=== PATIENT | male | born 1955 | race Two or more races ===

== ENCOUNTER 2021-10-12 03:40 | Inpatient (IN) | payer MEDICARE, OTHER ==
[~2021-10-12] VITALS: Ht 180.3 cm; Wt 86.2 kg
--- NOTE | 2021-10-12 04:05 | NUR ---
BIBRA 60 FROM HOME FOR R SHOULDER PAIN S/P TRIP AND FALL. PT NO ABLE TO MOVE R SHOUDLDER. ABRASION ; SKIN TEAR NOTED TO BILATERAL KNEES. PT A/OX3; NEURO CHECK DONE WNL. TOLERATING R/A WELL WITH NO RESP DISTRESS. CONNECTED PT TO POX AND MONITOR. SAFETY MESURES AT PLACE.
--- NOTE | 2021-10-12 04:07 | NUR ---
L NEPHROSTOMY TUBE NOTED LANDSCAPE CREW LEADER. LFA #20G S/L ESTABLISHED LANDSCAPE CREW LEADER
--- NOTE | 2021-10-12 05:21 | NUR ---
EMT AT PT'S BEDSIDE; APPLIED SLING TO R SHOULDER. EKG DONE
[2021-10-12] MEDS ORDERED: MORPHINE SULFATE INJ 4 MG/ML DISP.SYRIN ONE (05:23)
[2021-10-12] MEDS ORDERED: ONDANSETRON HCL/PF 4 MG/2 ML VIAL ONE (05:23)
--- NOTE | 2021-10-12 05:23 | NUR ---
PAGED DR SOLARES FOR ORTHO CONSULT
[2021-10-12] MEDS ORDERED: MORPHINE SULFATE INJ 2 MG/ML DISP.SYRIN IV ONE (05:30)
[2021-10-12] MEDS ORDERED: ONDANSETRON HCL/PF 4 MG/2 ML VIAL IV ONE (05:30)
--- NOTE | 2021-10-12 05:35 | NUR ---
DRYING FRAME OPERATOR AT PT'S BEDSIDE.
--- NOTE | 2021-10-12 05:43 | NUR ---
COVID ANTIGEN SWAB COLLECTED AND SENT TO LAB
[2021-10-12 05:50] LABS: BASOPHILS % (AUTO) 0.1 % (0.0-2.0); EOSINOPHILS % (AUTO) 0.1 % (0.0-6.0); HEMATOCRIT 37 % (39-51); HEMOGLOBIN 11.4 g/dL (13.5-17.5); LYMPHOCYTES # (AUTO) 0.3 K/uL (0.8-4.8); LYMPHOCYTES % (AUTO) 1.8 % (20.0-44.0); MEAN CORPUSCULAR HGB CONC 31 g/dl (31.0-36.0); MEAN CORPUSCULAR VOLUME 61 fL (80-96); MONOCYTES # (AUTO) 0.6 K/uL (0.1-1.30); MONOCYTES % (AUTO) 4.2 % (2.0-12.0); NEUTROPHILS # (AUTO) 13.3 K/uL (1.8-8.9); NEUTROPHILS % (AUTO) 93.8 % (43.0-81.0); PLATELET COUNT (AUTO) 203 K/uL (150-450); RED BLOOD CELL COUNT(AUTO) 6.05 MIL/uL (4.5-6.0); WHITE BLOOD COUNT (AUTO) 14.2 K/uL (4.3-11.0)
[2021-10-12] MEDS ORDERED: ACETAMINOPHEN 325 MG TABLET PO PRN (06:00)
[2021-10-12] MEDS ORDERED: ONDANSETRON HCL/PF 4 MG/2 ML VIAL IVP PRN (06:00)
[2021-10-12 06:07] LABS: CALCIUM, SERUM 9.1 mg/dL (8.5-10.1); CREATININE 2.7 mg/dL (0.6-1.3); POTASSIUM 3.1 mmol/L (3.5-5.1)
[2021-10-12] MEDS ORDERED: IV NS 0.9% 1,000 ML BAG IV ONE (06:30)
--- NOTE | 2021-10-12 06:43 | NUR ---
PER DR CRUZ DC 2L NS ADMIT 1L NS BOLUS
--- NOTE | 2021-10-12 07:15 | NUR ---
RECEVED PT FROM YOLANDE RN PT ASLEEPY NO SOB OR DISTRESS
--- NOTE | 2021-10-12 07:20 | NUR ---
PT MAINTAINED ON NPO DIET
[2021-10-12] MEDS ORDERED: NIFE30TA91 PO (07:50)
[2021-10-12] MEDS ORDERED: TEMA30CA PO (07:50)
[2021-10-12] MEDS ORDERED: METO25TA4 PO (07:50)
[2021-10-12] MEDS ORDERED: ATOR40TA PO (07:50)
--- NOTE | 2021-10-12 09:00 | NUR ---
urine output from ilistomy 600ml cleare color
--- NOTE | 2021-10-12 09:15 | NUR ---
luz ct scan of lt shoulder
[2021-10-12] MEDS ORDERED: DOCUSATE SODIUM LIQ 100 MG/10 ML UDC ONE (09:29)
[2021-10-12] MEDS ORDERED: hydrALAZINE HCL IV 20 MG VIAL ONE (09:30)
[2021-10-12] MEDS: DOCUSATE SODIUM LIQ 100 MG/10 ML UDC PO SCH ×2 (09:46→17:20)
[2021-10-12] MEDS: hydrALAZINE HCL IV 20 MG VIAL IV PRN ×3 (09:47→17:20)
--- NOTE | 2021-10-12 09:49 | NUR ---
iliostomy urine out put 200 ml clear color
--- NOTE | 2021-10-12 10:54 | NUR ---
ROOM UPDATE 315-8
--- NOTE | 2021-10-12 10:57 | NUR ---
REPORT GIVEN TO NURSE PETERSON FOR ARUN
--- NOTE | 2021-10-12 11:12 | NUR ---
ORTHOPIC EURGEN SAT BED SIDE SPOOK WITH PT ABOUT PLAN OF CARE AWARE BP 191/[address] [facility] [address] GONGORA ED PLAN TO SEND PT TO ROOM
--- NOTE | 2021-10-12 11:25 | NUR ---
Note aurelianojuan in ED - 10/12/21 at 1126 by PORSCHE THE PATIENT NPO AFTER MIDNIGHT PER DR PATRICIA. THE ORDER IS READ BACK, VERIFIED. NOTED AND CARRIED OUT. NURSES MARY KAY AND LYNN MADE AWARE.
--- NOTE | 2021-10-12 11:26 | NUR ---
THE PATIENT NPO AFTER MIDNIGHT PER DR PATRICIA. THE ORDER IS READ BACK, VERIFIED. NOTED AND CARRIED OUT. NURSES MARY KAY AND KRISTEN MADE AWARE.
--- NOTE | 2021-10-12 11:36 | NUR ---
THE PATIENT IS TRANSFERED TO ROOM 315-1 IN STABLE CONDITON AND PER POLICY.
--- NOTE | 2021-10-12 12:00 | NUR ---
RN receiving Note PT AOx4, state he has pain 10/10, able to address his own concerns. Pt with nephrostomy tube. High blood pressure. Partner at bedside. PT able to provide health history. Educated pt on importance of asking for assistance to reposition or use bathroom. Emptied pts nephrostomy bag 500ml. Clear/Yellow. All safety precautions take, bed at lowest position, call light and table within reach. Will follow up on physicians medication orders.
[2021-10-12 12:02] VITALS: BP 188/101
[2021-10-12] MEDS: MORPHINE SULFATE INJ 2 MG/ML DISP.SYRIN IV PRN ×3 (12:24→21:38)
[2021-10-12] MEDS: IV NS 0.9% 1,000 ML IV PRN (12:38)
[2021-10-12] MEDS ORDERED: TEMAZEPAM 15 MG CAPSULE PO PRN (13:00)
[2021-10-12 13:11] VITALS: BP 172/98
[2021-10-12 13:18] LABS: THYROID STIMULATING HORMONE 2.758 uIU/mL (0.358-3.74)
[2021-10-12] MEDS: POTASSIUM CHLORIDE 20 MEQ TAB.PRT.SR PO SCH ×2 (13:21→15:20)
[2021-10-12 15:48] VITALS: BP 196/94
[2021-10-12 16:00] VITALS: BP 198/98
[2021-10-12] MEDS: NIFEdipine XL (30MG) 30 MG TAB PO SCH (17:20)
--- NOTE | 2021-10-12 18:29 | NUR ---
RN Closing Notes PT AOx4, vital signs are stable other than Blood pressure (high). PT able to express needs. Through out out shift bp has been monitored and HTN meds administered as ordered by provider. Pain meds have been administered and pts pain has been from 10-5 throughout shift. Patient aware of scheduled procedure tomorrow am, need for medical and cardio clearance documented. Pt aware of his situation and expresses wanting to go forward with surgery. Consent has been signed and questions answered. All safety precautions taken, bed at lowest position, call light and table within reach.
--- NOTE | 2021-10-12 19:30 | NUR ---
NETWORK CABLER OPENING NOTE RECEIVED PATIENT IN BED A/OX4. NO S/S OF APPARENT DISTRESS IN ROOM AIR. C/O 06/19 PAIN-- WAS JUST GIVEN PAIN MEDICATION. RT. SHOULDER SLING NOTED IN PLACE. NEPHROSTOMY BAG NOTED IN PLACE-- EMPTIED 400 ML. 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 L. ARM #20G RUNNING NS @75MLS/HR. RE-ORIENTED AND ENCOURAGED WITH THE USE OF CALL LIGHT. SAFETY IN PLACE. WILL CONTINUE WITH PLAN OF CARE FOR PATIENT.
[2021-10-12] MEDS: hydrALAZINE HCL 50 MG TABLET PO SCH (19:44)
[2021-10-12 20:00] VITALS: BP 195/111
[2021-10-12] MEDS: NITROGLYCERIN 30 GM TUBE TP SCH (21:37)
[2021-10-12] MEDS: HEPARIN SODIUM, PORCINE 5000 UNITS/1 ML VIAL SQ SCH (21:44)
[2021-10-13] VITALS: BP 147/99
[2021-10-13] MEDS: MORPHINE SULFATE INJ 2 MG/ML DISP.SYRIN IV PRN ×4 (01:01→11:01)
--- NOTE | 2021-10-13 01:02 | NUR ---
THRILL PERFORMER NOTE PATIENT IN SEVERE PAIN. MORPHINE PRN GIVEN 30 MINUTES EARLY, PER CHARGE NURSE STEPHY OKAY TO GIVE, HR GOES UP TO 180'S.
--- NOTE | 2021-10-13 04:30 | NUR ---
RADIO STATION AUDIO ENGINEER NOTE PATIENT BEEN C/O SEVERE PAIN Q3. PUFF IRONER DOCTOR, DR. ODONNELL SAID IT IS OKAY TO CHANGE FREQUENCY Q3 TO Q4 OF PATIENT'S MORPHINE. ORDER CARRIED OUT.
[2021-10-13 05:00] VITALS: BP 134/85
[2021-10-13 05:59] LABS: BILIRUBIN,URINE NEGATIVE (NEGATIVE); COLOR,URINE YELLOW (YELLOW); LEUKOCYTE ESTERASE ,URINE NEGATIVE (NEGATIVE); NITRITE, URINE NEGATIVE (NEGATIVE); PROTEIN,URINE >=300 mg/dl (NEGATIVE); UGLUCOSE 100 MG/DL mg/dL (NEGATIVE)
[2021-10-13 06:05] LABS: BASOPHILS # (AUTO) 0.1 K/uL (0.0-0.2); BASOPHILS % (AUTO) 0.3 % (0.0-2.0); HEMATOCRIT 38 % (39-51); HEMOGLOBIN 11.9 g/dL (13.5-17.5); LYMPHOCYTES # (AUTO) 0.2 K/uL (0.8-4.8); LYMPHOCYTES % (AUTO) 1.2 % (20.0-44.0); MEAN CORPUSCULAR HGB CONC 31 g/dl (31.0-36.0); MEAN CORPUSCULAR VOLUME 61 fL (80-96); MONOCYTES % (AUTO) 5.6 % (2.0-12.0); NEUTROPHILS # (AUTO) 16.9 K/uL (1.8-8.9); NEUTROPHILS % (AUTO) 92.9 % (43.0-81.0); PLATELET COUNT (AUTO) 221 K/uL (150-450); RED BLOOD CELL COUNT(AUTO) 6.26 MIL/uL (4.5-6.0); WHITE BLOOD COUNT (AUTO) 18.2 K/uL (4.3-11.0)
[2021-10-13 06:18] LABS: BACTERIA,URINE Rare /HPF (None Seen); SQUAMOUS EPITHELIAL CELL,UR Few /HPF (None Seen); WBC,URINE 0-2 /HPF (0-3)
--- NOTE | 2021-10-13 06:23 | NUR ---
PLANT ACCOUNTANT CLOSING NOTE PATIENT IN BED , A/OX4. NO S/S OF APPARENT DISTRESS IN ROOM AIR. PAIN MANAGED WITH MEDICATION AND ICE PACKS. TELE MONITOR READING 1ST DEGREE AV BLOCK WITH BBB AND OCCASIONAL PVC'S AND TRIGEMINI THIS AM WITH 96 BPM. ALL NEEDS ATTENDED, ALL SCHEDULED MEDICATIONS ADMINISTERED. NPO SINCE MIDNIGHT, IN FOR SX TODAY, WILL ENDORSE TO MORNING SHIFT RN FOR CONTINUITY OF CARE.
[2021-10-13 06:26] LABS: ALBUMIN 3.6 g/dL (3.4-5.0); CALCIUM, SERUM 8.9 mg/dL (8.5-10.1); CREATININE 2.9 mg/dL (0.6-1.3); PHOSPHORUS 3.2 mg/dL (2.5-4.9); POTASSIUM 3.5 mmol/L (3.5-5.1); TOTAL PROTEIN, SERUM 7.2 g/dL (6.4-8.2)
--- NOTE | 2021-10-13 07:30 | NUR ---
ZIPPER SLIDE ATTACHER OPENING NOTE RECEIVED PATIENT IN BED A/OX4, NO S/S OF ACUTE DISTRESS OR SOB, ON RA ROOM AIR, TOLERATING PT C/O 10/19, WILL ADMINISTER PRN PAIN MED AND REASSESS. PT HAS R SHOULDER SLING NOTED. NEPHROSTOMY BAG NOTED IN PLACE, DRAINING CLEAR YELLOW URINE, DRAINED 200 ML. TELE MONITOR READING SR WITH 1ST DEGREE AV BLOCK WITH BBB AND OCCASIONAL PVC'S WITH 100 BPM. IV ACCESS L ARM #20G SL, PATENT. SAFETY MEASURES IN PLACE, HOB ELEVATED, LOCKED IN LOWEST POSITION, SIDERAILS UP X2, CALL LIGHT AND TABLE WITHIN REACH, WILL CONTINUE TO MONITOR.
[2021-10-13 08:00] VITALS: BP 186/93
[2021-10-13] MEDS: NIFEdipine XL (30MG) 30 MG TAB PO SCH ×2 (08:42→17:00)
[2021-10-13] MEDS: METOPROLOL SUCCINATE 25 MG TAB.SR.24H PO SCH (08:43)
[2021-10-13] MEDS: hydrALAZINE HCL 50 MG TABLET PO SCH ×3 (08:43→17:00)
[2021-10-13] MEDS: POLYETHYLENE GLYCOL 3350 17 GM POWD.PACK PO SCH ×2 (08:45→09:00)
[2021-10-13] MEDS: DOCUSATE SODIUM LIQ 100 MG/10 ML UDC PO SCH (08:45)
[2021-10-13] MEDS: HEPARIN SODIUM, PORCINE 5000 UNITS/1 ML VIAL SQ SCH ×2 (09:00→21:05)
[2021-10-13] MEDS ORDERED: ATORVASTATIN 40 MG TABLET PO SCH (09:00)
[2021-10-13] MEDS: NITROGLYCERIN 30 GM TUBE TP SCH ×2 (09:00→21:04)
[2021-10-13] MEDS ORDERED: ANESTHESIA TRAY IN PYXIS 1 EA TRAY MC ONE (11:43)
[2021-10-13 12:00] VITALS: BP 126/70
[2021-10-13] MEDS ORDERED: HYDROMORPHONE INJ 2 MG/ML DISP.SYRIN ONE (12:06)
[2021-10-13] MEDS ORDERED: ROCURONIUM BROMIDE 50 MG/5 ML ONE (12:06)
[2021-10-13] MEDS ORDERED: FENTANYL PF 100MCG/2ML AMPUL ONE (12:06)
--- NOTE | 2021-10-13 12:30 | NUR ---
MIDWIFE AND BIRTH CENTER OWNER NOTES: PT TRANSPORTED VIA BED TO SURGERY BY OR STAFF. PT VITALS PRE OP-BP: 126/70, HR: 106, TEMP: 97.2, O2 SAT 97% ON RA, RR: 18. CONSENT FORMS AND CHECKLIST SIGNED AND ATTACHED TO CHART.
[2021-10-13] MEDS ORDERED: diphenhydrAMINE HCL 25 MG CAPSULE PO PRN (14:00)
[2021-10-13] MEDS ORDERED: ONDANSETRON HCL/PF 4 MG/2 ML VIAL IV PRN (14:00)
[2021-10-13] MEDS ORDERED: MENTHOL/CETYLPYRD (CEPACOL) 1 LOZ LOZENGE PO PRN (14:00)
[2021-10-13] MEDS ORDERED: CLONIDINE HCL 0.1 MG TABLET PO PRN (14:00)
[2021-10-13] MEDS ORDERED: MAG HYDROX/AL HYDROX/SIMETH 30 ML UDC PO PRN (14:00)
[2021-10-13] MEDS ORDERED: MAGNESIUM HYDROXIDE 30 ML UDC PO PRN (14:00)
[2021-10-13] MEDS ORDERED: VANCOMYCIN 1 GM VIAL ONE (15:33)
[2021-10-13] MEDS ORDERED: BUPIVACAINE 0.5 % PF 150 MG/30 ML VIAL ONE (15:33)
[2021-10-13] MEDS ORDERED: BUPIVACAINE 0.25% 75 MG/30 ML VIAL ONE (15:33)
--- NOTE | 2021-10-13 17:00 | NUR ---
JAVA SECURITY ARCHITECT NOTES: 1700 MED NOT GIVEN, PT IS STILL NOT BACK FROM SURGERY.
[2021-10-13] MEDS ORDERED: SENNOSIDES 8.6 MG TABLET PO PRN (18:00)
[2021-10-13] MEDS ORDERED: ZOLPIDEM TARTRATE 5 MG TABLET PO PRN (18:00)
[2021-10-13] MEDS ORDERED: DOCUSATE SODIUM 250 MG CAPSULE PO PRN (18:00)
[2021-10-13] MEDS ORDERED: BISACODYL SUPP (10 MG) 10 MG/SUPP.RECT SUPP.RECT RC PRN (18:00)
[2021-10-13] MEDS ORDERED: HYDROCODONE/APAP 5/325MG TABLET PO PRN ×2 (18:00)
[2021-10-13] MEDS ORDERED: MORPHINE SULFATE INJ 4 MG/ML DISP.SYRIN IV PRN (18:00)
[2021-10-13] MEDS ORDERED: ACETAMINOPHEN 325 MG TABLET PO PRN (18:00)
--- NOTE | 2021-10-13 18:00 | NUR ---
CHERRY CUTTER NOTES: PT CAME BACK FROM SURGERY. VS STABLE: BP- 123/91, HR- 98, TEMP - 98.0, O2 SAT- 98%. CONNECTED TO TELE MONITOR READING SR 98. IV ACCESS AT R HAND #20, INFUSING 75ML/HR. PT IS IN 2L OF O2. NO S/S OF ACUTE DISTRESS OR SOB AT THE MOMENT. PT REPORTS PAIN 4/10 AT THE MOMENT, WILL CONTINUE TO MONITOR FOR PAIN. IS AT BEDSIDE. PER MD ORDER, PT CAN RESUME TO REG DIET, DINNER ORDERED FOR PT.
[2021-10-13] MEDS: DRONABINOL (2.5 MG) 2.5 MG CAPSULE PO SCH (18:35)
[2021-10-13] MEDS: HYDROCODONE/APAP 10/325MG TABLET PO PRN (18:35)
[2021-10-13] MEDS: SOD FERRIC GLUC 125 MG in IV NS 0.9% 100 ML IV SCH (19:01)
--- NOTE | 2021-10-13 19:30 | NUR ---
RN OPENING NOTE PATIENT IN BED, AT BEDSIDE. PATIENT IS A/O X 4, ABLE TO MAKE NEEDS KNOW. PATIENT IS ON 2LPM TOLERATING WELL. PATIENT IS S/P R SHOULDER SX, SHOULDER SLING ON. SX DRESSING C/D/I. PATIENT IS ON TELE MONITOR READING 96 BPM WITH 1ST DEGREE AV BLOCK, BBB, AND PVC. NEPHROSTOMY TUBE DRAINING CLEAR YELLOW URINE. PATIENT DOES NOT REPORT ANY PAIN AT THIS TIME. SAFETY MEASURES IN PLACE: BED LOCKED AND IN LOWEST POSITION, CALL LIGHT WITHIN REACH, SIDE RAILS UP. WILL MONITOR PATIENT CLOSELY.
--- NOTE | 2021-10-13 19:45 | NUR ---
L HAND IV ACCESS, LEAKING. IV ACCESS REMOVED.
--- NOTE | 2021-10-13 19:49 | NUR ---
OCEAN EXPORT COORDINATOR CLOSING NOTE PT S/P R SHOULDER ARTHROPLASTY. PT IN BED ASLEEP BUT EASILY ROUSED, A/OX4. NO S/S OF ACUTE DISTRESS OR SOB ON 2L OF O2. PT HAS R SHOULDER SLING NOTED. NEPHROSTOMY BAG NOTED IN PLACE, DRAINING CLEAR YELLOW URINE, DRAINED 900 ML BY END OF SHIFT. TELE MONITOR READING SR WITH 1ST DEGREE AV BLOCK WITH BBB AND OCCASIONAL PVC'S WITH 100 BPM. IV ACCESS R HAND #20G RUNNING NS @ 75ML/HR. SAFETY MEASURES IN PLACE, HOB ELEVATED, LOCKED IN LOWEST POSITION, SIDERAILS UP X2, CALL LIGHT AND TABLE WITHIN REACH, WILL CONTINUE TO MONITOR. Addendum: 10/13/21 at 1959 by ABEBA WASHINGTON RN ENDORSED TO PM SHIFT.
[2021-10-13 20:00] VITALS: BP 144/93
--- NOTE | 2021-10-13 20:30 | NUR ---
MULTIPLE PIV ATTEMPTS FAILED. OBTAINED ORDER TO HAVE MIDLINE INSERTED
[2021-10-13] MEDS: FAMOTIDINE (20 MG) 20 MG TABLET PO SCH (21:04)
[2021-10-13] MEDS: ANCEF 1 GM/50 ML D5W IV SCH ×2 (22:37)
[2021-10-13] MEDS: HYDROMORPHONE 1 MG/1 ML DISP.SYRIN IM/IV/SC PRN (22:37)
--- NOTE | 2021-10-13 22:40 | NUR ---
RN NOTE DILAUDID GIVEN FOR PAIN 8/10 ON R SHOULDER. WILL REASSESS AT A LATER TIME
[2021-10-14] VITALS: BP 130/50
[2021-10-14] MEDS: HYDROMORPHONE 1 MG/1 ML DISP.SYRIN IM/IV/SC PRN ×3 (03:54→17:31)
--- NOTE | 2021-10-14 03:54 | NUR ---
RN NOTE DILAUDID 0.5 MG IV FOR R SHOULDER PAIN.
[2021-10-14 05:00] VITALS: BP 130/93
[2021-10-14] MEDS: ANCEF 1 GM/50 ML D5W IV SCH ×2 (05:27)
[2021-10-14] MEDS: IV NS 0.9% 1,000 ML IV PRN (05:27)
[2021-10-14] MEDS: DRONABINOL (2.5 MG) 2.5 MG CAPSULE PO SCH ×2 (05:27→17:33)
[2021-10-14 06:29] LABS: HEMATOCRIT 34 % (39-51); HEMOGLOBIN 10.5 g/dL (13.5-17.5); LYMPHOCYTES # (AUTO) 0.5 K/uL (0.8-4.8); LYMPHOCYTES % (AUTO) 2.3 % (20.0-44.0); MEAN CORPUSCULAR HGB CONC 31 g/dl (31.0-36.0); MEAN CORPUSCULAR VOLUME 61 fL (80-96); MONOCYTES # (AUTO) 1.5 K/uL (0.1-1.30); MONOCYTES % (AUTO) 7.1 % (2.0-12.0); NEUTROPHILS # (AUTO) 18.8 K/uL (1.8-8.9); NEUTROPHILS % (AUTO) 90.6 % (43.0-81.0); PLATELET COUNT (AUTO) 229 K/uL (150-450); RED BLOOD CELL COUNT(AUTO) 5.54 MIL/uL (4.5-6.0); WHITE BLOOD COUNT (AUTO) 20.8 K/uL (4.3-11.0)
--- NOTE | 2021-10-14 06:58 | NUR ---
RN CLOSING NOTE PATIENT IN BED, EYES CLOSED. EASILY AWAKENED. MANAGED PAIN WITH DILAUDID 0.5 MG, REVIEWED PAIN MANAGEMENT WITH DR. SAMUEL. PATIENT'S NEPHROSTOMY TUBE PATENT AND INTACT, DRAINING YELLOW CLEAR URINE. R ARM SLING STILL ON, R SHOULDER DRESSING C/D/I. BASSEM MIDLINE PATENT AND INTACT RUNNING NS AT 75 ML/HR. NO SIGNIFICANT CHANGES DURING THE SHIFT. SAFETY MEASURES IMPLEMENTED. ALL NEEDS MET AND ATTENDED. ALL ORDERS CARRIED OUT. WILL ENDORSE TO DAY SHIFT NURSE FOR ARUN. Addendum: 10/14/21 at 0702 by ELIJAH ROJAS RN TELE MONITOR READS 92 SR WITH 1ST DEGREE AV BLOCK, BBB, AND PVC.
[2021-10-14 07:27] LABS: ALBUMIN 2.9 g/dL (3.4-5.0); BILIRUBIN,TOTAL 0.4 mg/dL (0.2-1.0); CALCIUM, SERUM 8.2 mg/dL (8.5-10.1); CREATININE 3.3 mg/dL (0.6-1.3); MAGNESIUM 2.2 mg/dL (1.8-2.4); PHOSPHORUS 4.1 mg/dL (2.5-4.9); POTASSIUM 3.9 mmol/L (3.5-5.1); TOTAL PROTEIN, SERUM 6.3 g/dL (6.4-8.2)
--- NOTE | 2021-10-14 07:30 | NUR ---
ADVANCED NURSING PROFESSOR OPENING NOTES RECEIVED PATIENT ON BED AWAKE AND A/O X4. ON ROOM AIR TOLERATING WELL. NO SOB NOTED. NOT IN DISTRESS. WITH NO COMPLAINTS OF PAIN OR DISCOMFORT AT THIS TIME. WITH IV ACCESS AT THE LEFT UPPER ARM MIDLINE WITH NS AT 75ML/HR INFUSING WELL. WITH SHOULDER SLING ON. SURGERY DRESSING C/D/I. ON TELE MONITOR CURRENTLY READING 94BPM WITH 1ST DEGREE AV BLOCK, BBB AND PVCs. WITH NEPHROSTOMY TUBE DRAINING CLEAR YELLOW URINE. SAFETY MEASURES IN PLACED. CALL LIGHT WITHIN REACH. BED ON LOWEST LOCKED POSITION, SIDE RAILS UP X2. WILL CONTINUE TO MONITOR.
[2021-10-14 08:38] VITALS: BP 127/92
[2021-10-14] MEDS: FAMOTIDINE (20 MG) 20 MG TABLET PO SCH ×2 (08:42→20:56)
[2021-10-14] MEDS: POLYETHYLENE GLYCOL 3350 17 GM POWD.PACK PO SCH (08:42)
[2021-10-14] MEDS: NIFEdipine XL (30MG) 30 MG TAB PO SCH ×2 (08:42→17:30)
[2021-10-14] MEDS: METOPROLOL SUCCINATE 25 MG TAB.SR.24H PO SCH (08:43)
[2021-10-14] MEDS: HEPARIN SODIUM, PORCINE 5000 UNITS/1 ML VIAL SQ SCH ×2 (08:45→20:59)
[2021-10-14] MEDS: NITROGLYCERIN 30 GM TUBE TP SCH ×2 (08:45→21:00)
[2021-10-14] MEDS: hydrALAZINE HCL 50 MG TABLET PO SCH ×3 (09:00→17:00)
[2021-10-14] MEDS ORDERED: SENNOSIDES 8.6 MG TABLET PO SCH (09:00)
[2021-10-14] MEDS: SOD FERRIC GLUC 125 MG in IV NS 0.9% 100 ML IV SCH (14:58)
[2021-10-14 16:13] VITALS: BP 121/86
--- NOTE | 2021-10-14 18:37 | NUR ---
MS RN OPENING NOTES PATIENT ON BED AWAKE AND A/O X4. ON ROOM AIR TOLERATING WELL. NO SOB NOTED. NOT IN DISTRESS. WITH NO COMPLAINTS OF PAIN OR DISCOMFORT AT THIS TIME. WITH IV ACCESS AT THE LEFT UPPER ARM MIDLINE WITH NS AT 125ML/HR INFUSING WELL. WITH SHOULDER SLING ON. SURGERY DRESSING C/D/I. WITH NEPHROSTOMY TUBE DRAINING CLEAR YELLOW URINE. DUE MEDS GIVEN. SAFETY MEASURES IN PLACED. CALL LIGHT WITHIN REACH. BED ON LOWEST LOCKED POSITION, SIDE RAILS UP X2. WILL ENDORSE TO NEXT SHIFT FOR ARUN.
[2021-10-14] MEDS: IV NS 0.9% 1,000 ML IV SCH (18:52)
--- NOTE | 2021-10-14 19:30 | NUR ---
RN OPENING NOTE PATIENT IN BED, PATIENT IS A/O X 4, ABLE TO MAKE NEEDS KNOW. PATIENT IS ON RA, TOLERATING WELL. R SHOULDER SLING ON. SX DRESSING C/D/I. LEFT NEPHROSTOMY TUBE DRAINING CLEAR YELLOW URINE. PATIENT DOES NOT REPORT ANY PAIN AT THIS TIME. SAFETY MEASURES IN PLACE: BED LOCKED AND IN LOWEST POSITION, CALL LIGHT WITHIN REACH, SIDE RAILS UP. WILL MONITOR PATIENT CLOSELY.
[2021-10-14 20:00] VITALS: BP 98/69
[2021-10-14] MEDS: CEFAZOLIN 1 GM in IV D5W 50 ML IV SCH (20:56)
--- NOTE | 2021-10-15 01:36 | NUR ---
AMBIEN GIVEN TO PATIENT HE STATES HE'S HAVING DIFFICULTY FALLING ASLEEP.
[2021-10-15] MEDS: IV NS 0.9% 1,000 ML IV SCH (01:44)
[2021-10-15] MEDS: CEFAZOLIN 1 GM in IV D5W 50 ML IV SCH ×2 (05:42→12:43)
[2021-10-15] MEDS: DRONABINOL (2.5 MG) 2.5 MG CAPSULE PO SCH ×2 (05:42→05:50)
--- NOTE | 2021-10-15 05:53 | NUR ---
PATIENT REFUSED TO TAKE MARINOL. RETURNED MED WITH 2ND RN.
--- NOTE | 2021-10-15 07:24 | NUR ---
RN CLOSING NOTE PATIENT IN BED, PATIENT IS A/O X 4, ABLE TO MAKE NEEDS KNOW. PATIENT IS ON RA, TOLERATING WELL. R SHOULDER SLING ON. SX DRESSING C/D/I. LEFT NEPHROSTOMY TUBE DRAINING CLEAR YELLOW URINE. PATIENT DOES NOT REPORT ANY PAIN AT THIS TIME. SAFETY MEASURES IN PLACE: BED LOCKED AND IN LOWEST POSITION, CALL LIGHT WITHIN REACH, SIDE RAILS UP. ALL NEEDS MET AND ATTENDED. ALL ORDERS CARRIED OUT. WILL ENDORSE PATIENT TO DAY SHIFT RN FOR ARUN.
[2021-10-15] MEDS ORDERED: IV NS 0.9% 1,000 ML IV SCH (07:30)
--- NOTE | 2021-10-15 07:30 | NUR ---
MS RN OPENING NOTES RECEIVED PATIENT AWAKE IN BED.PATIENT IS A/O X4. INDONESIAN SPEAKER. ON ROOM AIR TOLERATING WELL. NO SOB NOTED. NO DISTRESS NOTED. WITH NO COMPLAINTS OF PAIN OR DISCOMFORT AT THIS TIME. WITH IV ACCESS AT THE LEFT UPPER ARM MIDLINE WITH NS AT 125ML/HR INFUSING WELL. WITH RIGH SHOULDER SLING ON. SURGERY DRESSING C/D/I. NEPHROSTOMY TUBE AT THE LEFT SIDE IS DRAINING CLEAR YELLOW URINE. ALL SAFETY MEASURES IN PLACED. CALL LIGHT WITHIN REACH. BED ON LOWEST LOCKED POSITION, SIDE RAILS UP X2. WILL CONTINUE TO MONITOR..
[2021-10-15 08:00] VITALS: BP 111/75
[2021-10-15] MEDS: HYDROCODONE/APAP 10/325MG TABLET PO PRN (08:04)
[2021-10-15] MEDS: NIFEdipine XL (30MG) 30 MG TAB PO SCH (09:29)
[2021-10-15] MEDS: METOPROLOL SUCCINATE 25 MG TAB.SR.24H PO SCH (09:29)
[2021-10-15] MEDS: POLYETHYLENE GLYCOL 3350 17 GM POWD.PACK PO SCH (09:30)
[2021-10-15] MEDS: hydrALAZINE HCL 50 MG TABLET PO SCH ×2 (09:30→12:43)
[2021-10-15] MEDS: FAMOTIDINE (20 MG) 20 MG TABLET PO SCH (09:30)
[2021-10-15] MEDS: NITROGLYCERIN 30 GM TUBE TP SCH (09:31)
[2021-10-15] MEDS: HEPARIN SODIUM, PORCINE 5000 UNITS/1 ML VIAL SQ SCH (09:33)
[2021-10-15 10:01] LABS: BASOPHILS # (AUTO) 0.1 K/uL (0.0-0.2); BASOPHILS % (AUTO) 0.4 % (0.0-2.0); EOSINOPHILS % (AUTO) 0.1 % (0.0-6.0); HEMATOCRIT 31 % (39-51); HEMOGLOBIN 9.6 g/dL (13.5-17.5); LYMPHOCYTES # (AUTO) 0.6 K/uL (0.8-4.8); LYMPHOCYTES % (AUTO) 3.9 % (20.0-44.0); MEAN CORPUSCULAR HGB CONC 31 g/dl (31.0-36.0); MEAN CORPUSCULAR VOLUME 60 fL (80-96); MONOCYTES % (AUTO) 6.5 % (2.0-12.0); NEUTROPHILS % (AUTO) 89.1 % (43.0-81.0); PLATELET COUNT (AUTO) 229 K/uL (150-450); RED BLOOD CELL COUNT(AUTO) 5.15 MIL/uL (4.5-6.0); WHITE BLOOD COUNT (AUTO) 15.7 K/uL (4.3-11.0)
[2021-10-15 10:12] LABS: CALCIUM, SERUM 8.1 mg/dL (8.5-10.1); CREATININE 3.4 mg/dL (0.6-1.3); MAGNESIUM 2.1 mg/dL (1.8-2.4); POTASSIUM 3.4 mmol/L (3.5-5.1)
[2021-10-15 12:43] VITALS: BP 114/56
[2021-10-15] MEDS ORDERED: FERR325T23 PO (13:15)
[2021-10-15] MEDS ORDERED: ASCO-373 PO (13:15)
--- NOTE | 2021-10-15 14:27 | NUR ---
AUDITING SPECIALIST NOTES DISCHARGE PATIENT IN STABLE CONDITION WITH STABLE VITAL SIGNS. NO PAIN NOTED. NO SOB NOTED. NO DISTRESS NOTED. ALL THE DISCHARGE INSTRUCTIONS GIVEN TO THE PATIENT. PATIENT AND HIS GIRLFRIEND VERBALIZED UNDERSTANDING. ALL NEEDS ATTENDED. ID BAND REMOVED. REMOVED IV SITE , COVERED WITH DRY DRESSING , NO BLEEDING NOTED. REMIND THE PATIENT TO FOLLOW UP WITH DR. BALES IN 10-14 DAYS. FOLLOW UP WITH UROLOGIST ON SUNDAY. CREATININE LEVEL OF 3.4 AT TIME OF DISCHARGE. NORCO FOR PAIN IS PRESCRIBED. EDUCATE THE PATIENT DO NOT DRINK ALCOHOL OR DRIVE WHEN TAKING NORCO. WHEN TAKING NORCO DO NOT TAKE TYLENOL. PATIENT VERBALIZED UNDERSTANDING. ALL THE BELONGINGS ACCOUNTED AND SIGNED FOR. JOHNATHAN WHEELED THE PATIENT TO THE LOBBY. PATIENT LEFT HOSPITAL AT 1356 IN STABLE CONDITION WITH STABLE VITAL SIGNS. MD AND CHARGE NURSE AWARE OF THE DISCHARGE.
[2021-10-15 15:13] LABS: BILIRUBIN,URINE NEGATIVE (NEGATIVE); COLOR,URINE YELLOW (YELLOW); CREATININE, URINE 48.7 MG/DL (30.0-125.0); LEUKOCYTE ESTERASE ,URINE NEGATIVE (NEGATIVE); NITRITE, URINE NEGATIVE (NEGATIVE); PROTEIN,URINE >=300 mg/dl (NEGATIVE); UGLUCOSE NEGATIVE (NEGATIVE); UROBILINOGEN,URINE 0.2 EU/dL (0.2)
[2021-10-15 15:45] LABS: BACTERIA,URINE None seen /HPF (None Seen); RBC,URINE 21-50 /HPF (0-2); SQUAMOUS EPITHELIAL CELL,UR 0-2 /HPF (None Seen); WBC,URINE 0-2 /HPF (0-3)
== END 2021-10-15 14:30 | disposition home health service (06) | DRG 483 ==
LOC: ER 03:43 → EDBD 03:43 → CSC1 09:11 → TRANSITION 09:27 → MED 10:56 → TELE 11:42 → MED 10-14 11:08
PROVIDERS: ADMIT Nurse Practitioner Family; ATTEND Nurse Practitioner Family
PROC: 0RRJ00Z Replacement of Right Shoulder Joint with Reverse Ball and Socket Synthetic Substitute, Open Approach (ICD-10-PCS; principal; 2021-10-13)
PROC: 0LS30ZZ Reposition Right Upper Arm Tendon, Open Approach (ICD-10-PCS; 2021-10-13)
PROC: 05HC33Z Insertion of Infusion Device into Left Basilic Vein, Percutaneous Approach (ICD-10-PCS; 2021-10-13)
DX: S42.291A Other displaced fracture of upper end of right humerus, initial encounter for closed fracture (principal); N17.0 Acute kidney failure with tubular necrosis; C82.90 Follicular lymphoma, unspecified, unspecified site; E87.2 Acidosis; Q61.3 Polycystic kidney, unspecified; N13.30 Unspecified hydronephrosis; W01.0XXA Fall on same level from slipping, tripping and stumbling without subsequent striking against object, initial encounter; N18.9 Chronic kidney disease, unspecified; Z95.3 Presence of xenogenic heart valve; Z20.822 Contact with and (suspected) exposure to COVID-19; I12.9 Hypertensive chronic kidney disease with stage 1 through stage 4 chronic kidney disease, or unspecified chronic kidney disease; Z93.6 Other artificial openings of urinary tract status; Z79.899 Other long term (current) drug therapy; Z82.49 Family history of ischemic heart disease and other diseases of the circulatory system; Z85.6 Personal history of leukemia; D50.9 Iron deficiency anemia, unspecified; E11.22 Type 2 diabetes mellitus with diabetic chronic kidney disease; E78.5 Hyperlipidemia, unspecified; E87.6 Hypokalemia; S43.014A Anterior dislocation of right humerus, initial encounter; S43.034A Inferior dislocation of right humerus, initial encounter; D72.829 Elevated white blood cell count, unspecified; E88.09 Other disorders of plasma-protein metabolism, not elsewhere classified; F12.90 Cannabis use, unspecified, uncomplicated; G47.00 Insomnia, unspecified; D63.8 Anemia in other chronic diseases classified elsewhere; F43.9 Reaction to severe stress, unspecified; Y92.9 Unspecified place or not applicable
CPT/HCPCS: 36410; 36415; 71045-TC; 73020; 73030-TC; 73200-TC; 76770-TC; 80048-TC; 80053-TC; 81001; 82570-TC; 82728-TC; 83540-TC; 83735-TC; 84100-TC; 84300-TC; 84443-TC; 85025-TC; 85730-TC; 87081-TC; 93307-TC; A4565; A4649; C1713; C1776; C9803; G0378; J0330; J0360; J0690; J1100; J1170; J1644; J2270; J2405; J2704; J2916; J3010; J3370; J3490; J7030; J7060; Q0167